=== PATIENT | male | born 1990 | race African-American/Black ===

== ENCOUNTER 2021-11-01 01:12 | Emergency (ER) | payer OTHER ==
[2021-11-01 01:37] VITALS: BP 144/94; PULSE 73; RESP 18; TEMP 98.7; BMI 24.4
[2021-11-01] MEDS ORDERED: ACETAMINOPHEN 500 MG TABLET (FP) PO ONE (02:33)
[2021-11-01] MEDS ORDERED: ACETAMINOPHEN 325 MG TABLET (FP) ONE (02:35)
[2021-11-01] MEDS ORDERED: KETOROLAC TROMETHAMINE 30 MG/1 ML VIAL IM ONE (02:35)
[2021-11-01] MEDS ORDERED: KETOROLAC TROMETHAMINE 15 MG/ML VIAL ONE (02:38)
== END 2021-11-01 03:56 | disposition home or self-care (01) ==
LOC: JER 01:12
PROC: 3E0233Z Introduction of Anti-inflammatory into Muscle, Percutaneous Approach (ICD-10-PCS; principal; 2021-11-01)
DX: S06.0X0A Concussion without loss of consciousness, initial encounter (principal)
CPT/HCPCS: 99283-25

== ENCOUNTER 2022-08-01 06:28 | Emergency (ER) | payer BC, OTHER ==
[2022-08-01 06:36] VITALS: BP 122/85; PULSE 96; RESP 16; TEMP 97.9; BMI 23.7
[2022-08-01] MEDS ORDERED: LIDO 2%/EPI 1:200000 PRESRVFRE (20 ML SDVIAL) ONE (08:37)
[2022-08-01] MEDS ORDERED: AZITHROMYCIN 250 MG TABLET ONE (09:37)
== END 2022-08-01 09:22 | disposition home or self-care (01) ==
LOC: FER 06:28
DX: S01.81XA Laceration without foreign body of other part of head, initial encounter (principal); S40.811A Abrasion of right upper arm, initial encounter; W50.0XXA Accidental hit or strike by another person, initial encounter; Y93.66 Activity, soccer
CPT/HCPCS: 99282-25

== ENCOUNTER 2023-11-16 00:09 | Emergency (ER) | payer BC, OTHER ==
[2023-11-16 00:16] VITALS: BP 130/100; PULSE 68; RESP 16; TEMP 98.1; BMI 24.4
[2023-11-16] MEDS ORDERED: IBUPROFEN 600 MG TABLET (FP) PO ONE (00:33)
[2023-11-16] MEDS: IBUPROFEN 600 MG TABLET (FP) PO ONE (00:35)
== END 2023-11-16 02:30 | disposition home or self-care (01) ==
LOC: FER 00:09
DX: S93.602A Unspecified sprain of left foot, initial encounter (principal); S00.83XA Contusion of other part of head, initial encounter; R42 Dizziness and giddiness; W22.8XXA Striking against or struck by other objects, initial encounter
CPT/HCPCS: 73630-TC-LT; 99283-25

== ENCOUNTER 2024-10-25 11:40 | Emergency (ER) | payer OTHER ==
[2024-10-25 11:54] VITALS: BP 118/92; PULSE 72; RESP 18; TEMP 98.8; BMI 25.0
[2024-10-25] MEDS ORDERED: IBUPROFEN 400 MG TABLET (FP) PO ONE (13:02)
[2024-10-25] MEDS ORDERED: ACETAMINOPHEN 500 MG TABLET (FP) ONE (13:03)
[2024-10-25] MEDS: IBUPROFEN 400 MG TABLET (FP) PO ONE (13:04)
[2024-10-25] MEDS: ACETAMINOPHEN 500 MG TABLET (FP) PO ONE (13:04)
== END 2024-10-25 16:01 | disposition home or self-care (01) ==
LOC: FER 11:40
DX: S39.012A Strain of muscle, fascia and tendon of lower back, initial encounter (principal); N50.811 Right testicular pain; Y35.891A Legal intervention involving other specified means, law enforcement official injured, initial encounter
CPT/HCPCS: 76870-TC; 99284-25